=== PATIENT | female | born 1940 | race Caucasian/White ===

== ENCOUNTER 2022-02-21 15:26 | Observation (INO) | payer MEDICARE, OTHER ==
[2022-02-21] MEDS ORDERED: Albuterol/Ipratropium 3.0-0.5 MG/3 ML Neb Soln NEB ONE (15:41)
[2022-02-21] MEDS ORDERED: methylPREDNISolone Sodium Succinate 125 MG/2 ML SDV IVPUSH ONE (15:41)
[2022-02-21] MEDS: Sodium Chloride 0.9% 10 ML Syringe FLUSH PRN ×2 (15:49→19:09)
[2022-02-21 16:44] LABS: ANION GAP 13.4 mEq/L (7-13); CHLORIDE,CL 100 mmol/L (98-107); SODIUM,NA 138 mmol/L (136-145)
[2022-02-21 16:45] LABS: ESTIMATED GFR 51 mL/min (>=60)
[2022-02-21 16:57] LABS: CORONAVIRUS COVID-19 NAA NEGATIVE (NEGATIVE)
[2022-02-21] MEDS ORDERED: Levofloxacin 500 MG Tab PO SCH (17:00)
[2022-02-21] MEDS ORDERED: Sodium Chloride 0.9% 10 ML Syringe FLUSH PRN (17:40)
[2022-02-21] MEDS ORDERED: Acetaminophen 325 MG Tab PO PRN (17:46)
[2022-02-21] MEDS ORDERED: Ondansetron 4 MG/2 ML SDV IVPUSH PRN (17:46)
[2022-02-21] MEDS ORDERED: Albuterol/Ipratropium 3.0-0.5 MG/3 ML Neb Soln NEB PRN (17:46)
[2022-02-21] MEDS ORDERED: Docusate Sodium 100 MG Cap PO PRN (17:46)
[2022-02-21] MEDS ORDERED: Ondansetron 4 MG Tab.DIS PO PRN (17:46)
[2022-02-21] MEDS: Albuterol/Ipratropium 3.0-0.5 MG/3 ML Neb Soln NEB SCH (18:25)
[2022-02-21] MEDS ORDERED: atorvaSTATin 10 MG Tab PO SCH (21:00)
[2022-02-21] MEDS: Heparin Sodium 5,000 Units/ML Vial SUBCUT SCH (21:34)
[2022-02-22] MEDS: Heparin Sodium 5,000 Units/ML Vial SUBCUT SCH (05:48)
[2022-02-22] MEDS: Albuterol/Ipratropium 3.0-0.5 MG/3 ML Neb Soln NEB SCH (08:33)
[2022-02-22] MEDS ORDERED: amLODIPine 5 MG Tab PO SCH (09:00)
[2022-02-22] MEDS ORDERED: Tiotropium Inhaler 18 MCG Inhalation Powder Cap Kit of 5 INH SCH (09:00)
== END 2022-02-22 10:30 | disposition home or self-care (01) ==
LOC: DL.ED 15:26 → DL.MS 17:54
PROVIDERS: ADMIT Hospitalist; ATTEND Hospitalist
DX: J96.01 Acute respiratory failure with hypoxia (principal); J44.1 Chronic obstructive pulmonary disease with (acute) exacerbation; E78.00 Pure hypercholesterolemia, unspecified; I10 Essential (primary) hypertension; F17.210 Nicotine dependence, cigarettes, uncomplicated; Z20.822 Contact with and (suspected) exposure to COVID-19; Z79.899 Other long term (current) drug therapy; Z98.890 Other specified postprocedural states
CPT/HCPCS: 0240U; 36415; 71045; 71250; 80048; 80053; 81001; 83605; 83880; 84145; 84484; 85025; 86140; 87040; 87086; 87088; 87186; 93005; 94640; 96372; 96374; 99285; A9270; G0378; J1644; J2930; J3490; J7620-GY

== ENCOUNTER 2024-02-19 13:32 | Inpatient (IN) | payer MEDICARE, OTHER ==
[2024-02-19] MEDS: Albuterol/Ipratropium 3.0-0.5 MG/3 ML Neb Soln NEB ONE (14:04)
[2024-02-19] MEDS: Albuterol 0.083% 2.5 MG/3 ML Neb Soln NEB ONE (14:05)
[2024-02-19] MEDS: Sodium Chloride 0.9% 10 ML Syringe FLUSH PRN (14:23)
[2024-02-19] MEDS: methylPREDNISolone Sodium Succinate 125 MG/2 ML SDV IVPUSH ONE (14:23)
[2024-02-19 14:25] LABS: BASOPHILS PERCENT AUTO 0.9 % (0.0-1.0); EOSINOPHILS PERCENT AUTO 8.6 % (1.0-3.0); HEMATOCRIT 44.6 % (37.0-47.0); HEMOGLOBIN 14.6 g/dL (12.0-16.0); LYMPHOCYTES PERCENT AUTO 24.6 % (20.5-50.1); MEAN CORPUSCULAR HEMOGLOBIN 30.1 pg (27.0-34.0); MEAN CORPUSCULAR HGB CONC 32.7 g/dL (33.0-35.0); MONOCYTES PERCENT AUTO 8.1 % (2-8); NEUTROPHILS PERCENT AUTO 57.8 % (42.2-75.2); PLATELET COUNT,PLT 315 10^3/uL (150-450); RED BLOOD CELL COUNT 4.85 10^6/uL (4.2-5.4)
[2024-02-19 14:44] LABS: A/G RATIO 1.1; ALBUMIN 4.1 g/dL (3.4-5.0); ANION GAP 13.3 mEq/L (7-13); BILIRUBIN TOTAL 0.5 mg/dL (0.2-1.0); BUN/CREATININE RATIO 15.1 (No establ ref range); CALCIUM 9.4 mg/dL (8.5-10.1); CREATININE 0.93 mg/dL (0.55-1.02); EST CRCL DRUG DOSING (CG) 41.08 mL/min; POTASSIUM,K 4.3 mmol/L (3.5-5.1); PROTEIN TOTAL,TP 7.9 g/dL (6.4-8.2)
[2024-02-19 14:48] LABS: LACTIC ACID 0.8 mmol/L (0.4-2.0)
[2024-02-19] MEDS ORDERED: Ondansetron 4 MG Tab.DIS PO PRN (16:53)
[2024-02-19] MEDS ORDERED: Acetaminophen 325 MG Tab PO PRN (16:53)
[2024-02-19] MEDS ORDERED: Acetaminophen/HYDROcodone 325-10 MG Tab PO PRN (16:53)
[2024-02-19] MEDS ORDERED: Docusate Sodium 100 MG Cap PO PRN (16:53)
[2024-02-19] MEDS: Albuterol/Ipratropium 3.0-0.5 MG/3 ML Neb Soln NEB SCH (17:18)
[2024-02-19] MEDS: Sodium Chloride 0.9% 1,000 ML IV SCH (17:24)
[2024-02-19] MEDS: cefTRIAXone 1 GM Vial IVPUSH SCH (17:25)
[2024-02-19] MEDS: Azithromycin 500 MG in Sodium Chloride 0.9% 250 ML IV SCH (17:26)
[2024-02-19] MEDS: amLODIPine 5 MG Tab PO SCH (18:31)
[2024-02-19] MEDS: Lisinopril 20 MG Tab PO SCH (18:33)
[2024-02-19] MEDS: Tiotropium Bromide 4 GM Inhalation Spray (2.5mcg/1 dose; 10 doses) INH SCH (18:45)
[2024-02-19] MEDS ORDERED: Non-Formulary Medication 1 Each (Tiotropium [Spiriva Handihaler] 18 MCG Cap) INH SCH (21:00)
[2024-02-19] MEDS: Formoterol/Mometasone 200-5 MCG 8.8 GM Inhaler IH SCH (21:20)
[2024-02-19] MEDS: atorvaSTATin 10 MG Tab PO SCH (21:20)
[2024-02-19] MEDS: methylPREDNISolone Sodium Succinate 40 MG/1 ML SDV IVPUSH SCH (21:23)
[2024-02-20] MEDS: Formoterol/Mometasone 200-5 MCG 8.8 GM Inhaler IH SCH (06:10)
[2024-02-20] MEDS: Tiotropium Bromide 4 GM Inhalation Spray (2.5mcg/1 dose; 10 doses) INH SCH (06:11)
[2024-02-20] MEDS ORDERED: amLODIPine 5 MG Tab PO SCH (09:00)
[2024-02-20] MEDS ORDERED: Lisinopril 20 MG Tab PO SCH (09:00)
[2024-02-20] MEDS: Gemfibrozil 600 MG Tab PO SCH (09:12)
[2024-02-20] MEDS: Enoxaparin 40 MG/0.4 ML Syringe SUBCUT SCH (09:13)
[2024-02-20] MEDS: Nicotine 21 MG/24 Hr Patch TRDERM SCH (09:18)
[2024-02-20] MEDS: Iopamidol 612 MG/ML 100 ML Bottle IVPUSH ONE (16:15)
[2024-02-20] MEDS: Melatonin 3 MG Tab PO PRN (22:20)
== END 2024-02-21 12:45 | disposition home or self-care (01) | DRG 193 ==
LOC: DL.ED 13:32 → UNDOADMIN 16:04 → DL.MS 16:04 → DL.ED 16:19 → DL.MS 16:53
PROVIDERS: ADMIT Internal Medicine; ATTEND Internal Medicine
DX: J18.9 Pneumonia, unspecified organism (principal); J96.21 Acute and chronic respiratory failure with hypoxia; J44.0 Chronic obstructive pulmonary disease with (acute) lower respiratory infection; J44.1 Chronic obstructive pulmonary disease with (acute) exacerbation; E78.00 Pure hypercholesterolemia, unspecified; Z79.899 Other long term (current) drug therapy; C34.91 Malignant neoplasm of unspecified part of right bronchus or lung; I10 Essential (primary) hypertension; E78.5 Hyperlipidemia, unspecified; R91.1 Solitary pulmonary nodule; F17.210 Nicotine dependence, cigarettes, uncomplicated; Z87.442 Personal history of urinary calculi; Z90.5 Acquired absence of kidney
CPT/HCPCS: 36415; 71045; 80053; 83605; 83880; 85025; 93005; 93010; 96374; 99285 ×2; J2919; 71260; 94640; 94760; A9270-GY; J0456; J0696; J1650; J3490; J7030; J7050; J7613-GY; J7620-GY; Q9967